=== PATIENT | male | born 1960 | race Caucasian/White ===

== ENCOUNTER 2021-01-28 14:19 | Observation (INO) ==
[2021-01-28] MEDS ORDERED: 0.9 % Sodium Chloride 1,000 ML IV ONE (14:37)
[2021-01-28] MEDS ORDERED: Ondansetron 4 MG/2 ML VIAL IVP ONE (14:37)
[2021-01-28 15:14] LABS: Basophils % 0.3 %; Eosinophils # 0.1 K/mcL (0.0-0.6); Eosinophils % 0.8 %; Hematocrit 50.4 % (37.5-50.1); Hemoglobin 15.7 g/dL (12.9-16.9); Immature Granulocytes % 0.5 % (0-4); Lymphocytes # 1.4 K/mcL (0.6-4.6); Lymphocytes % 17.6 %; Mean Corpuscular HGB Conc 31.2 g/dL (31.6-35.5); Mean Corpuscular Hemoglobin 25.1 pg (28.0-33.3); Mean Corpuscular Volume 80.6 fL (83.0-100.0); Monocytes # 0.6 K/mcL (0.0-1.3); Monocytes % 7.3 %; Neutrophils # 5.8 K/mcL (1.6-8.9); Platelet Count 319 K/mcL (140-400); Red Blood Count 6.25 M/mcL (4.19-5.50); Segmented Neutrophils % 73.5 %; White Blood Count 7.9 K/mcL (4.3-11.1)
[2021-01-28 15:17] LABS: INR 1.2; Prothrombin Time 14.2 Seconds (9.4-12.1)
[2021-01-28 15:20] LABS: Activated Partial Thrombo Time 36.4 Seconds (26.0-36.0)
[2021-01-28 15:25] LABS: Amorphous Sediment,Urine Few per hpf (None-Few); Bacteria,Urine Few per hpf (None-Few); Bilirubin,Urine Negative (Negative); Blood,Urine Negative (Negative); Clarity,Urine Clear (Clear); Color,Urine Yellow (Yellow); Glucose,Urine (UA) Normal (Normal); Ketones,Urine Negative (Negative); Leukocyte Esterase,Urine Negative (Negative); Mucus,Urine Few per lpf (None-Few); Nitrite,Urine Negative (Negative); Protein,Urine 30 mg/dL (Neg-Trace); RBC,Urine 0-3 per hpf (0-3); Specific Gravity,Urine 1.029 (1.010-1.025); Squamous Epithelial Cell,Urine Few per hpf (None-Few); Urobilinogen,Urine Normal (Normal); WBC,Urine 0-3 per hpf (0-3)
[2021-01-28 15:30] LABS: Alanine Aminotransferase 14 Units/L (7-52); Albumin 4.1 g/dL (3.5-5.7); Albumin/Globulin Ratio 1.3 (1.1-2.2); Alkaline Phosphatase 70 Units/L (34-104); Aspartate Amino Transferase 19 Units/L (13-39); BUN/Creatinine Ratio 20 (6-26); Bilirubin,Total 2.2 mg/dL (0.3-1.0); Blood Urea Nitrogen 25 mg/dL (8-23); C-Reactive Protein 6 mg/L (Less than 10); Calcium 9.3 mg/dL (8.6-10.3); Carbon Dioxide 24 mEq/L (23-29); Chloride 103 mEq/L (98-107); Creatine Kinase 226 Units/L (30-223); Globulin 3.1 g/dL (2.4-3.5); Glucose 126 mg/dL (70-105); Lipase 18 Units/L (11-82); Magnesium 1.9 mg/dL (1.6-2.6); Osmolality,Calculated 292 (280-300); Sodium 138 mEq/L (136-145); Total Protein 7.2 g/dL (6.4-8.9); Troponin I < 0.03 ng/mL (< 0.04); eGFR For African Americans > 60 (> 60); eGFR For Non-African Americans > 60 (> 60)
[2021-01-28 15:43] LABS: Thyroid Stimulating Hormone 0.204 mcIU/mL (0.340-5.600)
[2021-01-28] MEDS ORDERED: Morphine Sulfate 2 MG/ML SYRINGE IVP ONE (16:17)
[2021-01-28] MEDS ORDERED: *HR* Heparin 5,000 UNIT/ML VIAL IVP PRN ×2 (17:00)
[2021-01-28] MEDS ORDERED: *HR* Heparin 5,000 UNIT/ML VIAL IVP ONE (17:00)
[2021-01-28] MEDS ORDERED: Naloxone 0.4 MG/ML INJ IVP PRN (17:00)
[2021-01-28] MEDS ORDERED: Ondansetron 4 MG/2 ML VIAL IVP PRN (17:00)
[2021-01-28] MEDS ORDERED: Acetaminophen 325 MG TABLET PO PRN (17:00)
[2021-01-28] MEDS: *HR* OxyCODONE Immed Rel 15 MG TABLET PO PRN (17:52)
[2021-01-28 18:25] LABS: Hematocrit 48.5 % (37.5-50.1); Hemoglobin 14.7 g/dL (12.9-16.9); Mean Corpuscular HGB Conc 30.3 g/dL (31.6-35.5); Mean Corpuscular Volume 82.3 fL (83.0-100.0); Mean Platelet Volume 9.8 fL (9.4-12.4); Platelet Count 288 K/mcL (140-400); Red Blood Count 5.89 M/mcL (4.19-5.50); Red Cell Distribution Width 14.9 % (11.5-14.5); White Blood Count 7.4 K/mcL (4.3-11.1)
[2021-01-28] MEDS: Ringers Solution, Lactated 1,000 ML IVC SCH (18:25)
[2021-01-28] MEDS: *HR* Promethazine 25 MG/ML VIAL IM PRN (18:25)
[2021-01-28] MEDS: tiZANidine 4 MG TABLET PO SCH (18:26)
[2021-01-28] MEDS: Heparin 25,000UNIT/250ML 1/2NS 25,000 UNIT/250 ML IV.SOLN IVC SCH (20:02)
[2021-01-28] MEDS: Sucralfate 1 GM TABLET PO SCH (20:08)
[2021-01-28] MEDS: rOPINIRole 1 MG TABLET PO SCH (20:08)
[2021-01-28] MEDS: Gabapentin 300 MG CAPSULE PO SCH (20:08)
[2021-01-29] MEDS: *HR* OxyCODONE Immed Rel 15 MG TABLET PO PRN ×3 (00:18→18:48)
[2021-01-29] MEDS: tiZANidine 4 MG TABLET PO SCH ×4 (01:27→23:44)
[2021-01-29 02:38] LABS: Basophils % 0.4 %; Eosinophils # 0.1 K/mcL (0.0-0.6); Hematocrit 45.4 % (37.5-50.1); Hemoglobin 14.4 g/dL (12.9-16.9); Immature Granulocytes % 0.3 % (0-4); Lymphocytes % 29.4 %; Mean Corpuscular HGB Conc 31.7 g/dL (31.6-35.5); Mean Corpuscular Hemoglobin 25.8 pg (28.0-33.3); Mean Corpuscular Volume 81.4 fL (83.0-100.0); Mean Platelet Volume 10.5 fL (9.4-12.4); Monocytes # 0.7 K/mcL (0.0-1.3); Monocytes % 10.2 %; Platelet Count 283 K/mcL (140-400); Red Blood Count 5.58 M/mcL (4.19-5.50); Red Cell Distribution Width 14.8 % (11.5-14.5); Segmented Neutrophils % 57.7 %; White Blood Count 6.9 K/mcL (4.3-11.1)
[2021-01-29 02:56] LABS: Alanine Aminotransferase 11 Units/L (7-52); Albumin 3.5 g/dL (3.5-5.7); Albumin/Globulin Ratio 1.3 (1.1-2.2); Alkaline Phosphatase 59 Units/L (34-104); Aspartate Amino Transferase 19 Units/L (13-39); BUN/Creatinine Ratio 18 (6-26); Bilirubin,Total 1.9 mg/dL (0.3-1.0); Blood Urea Nitrogen 26 mg/dL (8-23); Calcium 8.5 mg/dL (8.6-10.3); Carbon Dioxide 24 mEq/L (23-29); Chloride 104 mEq/L (98-107); Globulin 2.7 g/dL (2.4-3.5); Glucose 106 mg/dL (70-105); Magnesium 1.9 mg/dL (1.6-2.6); Osmolality,Calculated 293 (280-300); Phosphorous 4.4 mg/dL (2.7-4.5); Potassium 3.8 mEq/L (3.5-5.1); Sodium 139 mEq/L (136-145); Total Protein 6.2 g/dL (6.4-8.9); eGFR For African Americans > 60 (> 60); eGFR For Non-African Americans 50 (> 60)
[2021-01-29] MEDS: amLODIPine 5 MG TABLET PO SCH (08:29)
[2021-01-29] MEDS: Sucralfate 1 GM TABLET PO SCH ×2 (08:29→21:03)
[2021-01-29] MEDS: carvediloL 6.25 MG TABLET PO SCH ×2 (08:29→16:20)
[2021-01-29] MEDS: Gabapentin 300 MG CAPSULE PO SCH ×3 (08:29→21:03)
[2021-01-29] MEDS: *HR* Promethazine 25 MG/ML VIAL IM PRN ×2 (08:35→17:00)
[2021-01-29] MEDS ORDERED: Isovue-370 500 ML BOTTLE IVP ONE ×2 (11:38)
[2021-01-29] MEDS ORDERED: 0.9 % Sodium Chloride 1,000 ML IVC ONE (13:56)
[2021-01-29] MEDS: Heparin 25,000UNIT/250ML 1/2NS 25,000 UNIT/250 ML IV.SOLN IVC SCH (14:16)
[2021-01-29] MEDS ORDERED: Ringers Solution, Lactated 1,000 ML ONE (16:56)
[2021-01-29] MEDS: Ringers Solution, Lactated 1,000 ML IVC SCH ×2 (17:00→17:06)
[2021-01-29] MEDS: rOPINIRole 1 MG TABLET PO SCH (21:03)
[2021-01-30] MEDS: *HR* OxyCODONE Immed Rel 15 MG TABLET PO PRN ×3 (00:35→13:37)
[2021-01-30 02:30] LABS: Hematocrit 45.5 % (37.5-50.1); Hemoglobin 13.7 g/dL (12.9-16.9); Mean Corpuscular HGB Conc 30.1 g/dL (31.6-35.5); Mean Corpuscular Hemoglobin 25.4 pg (28.0-33.3); Mean Corpuscular Volume 84.3 fL (83.0-100.0); Mean Platelet Volume 10.4 fL (9.4-12.4); Platelet Count 197 K/mcL (140-400); Red Cell Distribution Width 14.7 % (11.5-14.5); White Blood Count 5.2 K/mcL (4.3-11.1)
[2021-01-30 02:46] LABS: BUN/Creatinine Ratio 17 (6-26); Blood Urea Nitrogen 21 mg/dL (8-23); Calcium 8.4 mg/dL (8.6-10.3); Carbon Dioxide 23 mEq/L (23-29); Chloride 106 mEq/L (98-107); Glucose 107 mg/dL (70-105); Osmolality,Calculated 287 (280-300); Potassium 3.8 mEq/L (3.5-5.1); Sodium 137 mEq/L (136-145); eGFR For African Americans > 60 (> 60); eGFR For Non-African Americans > 60 (> 60)
[2021-01-30] MEDS: Gabapentin 300 MG CAPSULE PO SCH ×2 (08:55→17:01)
[2021-01-30] MEDS: carvediloL 6.25 MG TABLET PO SCH (08:56)
[2021-01-30] MEDS: amLODIPine 5 MG TABLET PO SCH (08:57)
[2021-01-30] MEDS: Sucralfate 1 GM TABLET PO SCH (08:58)
[2021-01-30] MEDS: *HR* Promethazine 25 MG/ML VIAL IM PRN (08:59)
[2021-01-30] MEDS: tiZANidine 4 MG TABLET PO SCH ×2 (08:59→17:01)
[2021-01-30] MEDS: Heparin 25,000UNIT/250ML 1/2NS 25,000 UNIT/250 ML IV.SOLN IVC SCH ×2 (10:09→16:59)
[2021-01-30] MEDS ORDERED: Perflutren Lipid Microsphere 1.3 ML in 0.9 % Sodium Chloride 8.7 ML IVP PRN ×2 (10:22→14:07)
[2021-01-30 14:50] VITALS: BP 128/88
[2021-01-30] MEDS ORDERED: Apixaban 5 MG TABLET PO SCH (16:56)
[2021-01-30] MEDS ORDERED: carvediloL 6.25 MG TABLET PO SCH (17:00)
[2021-01-31] MEDS ORDERED: amLODIPine 5 MG TABLET PO SCH (09:00)
== END 2021-01-30 18:34 | disposition home or self-care (01) ==
LOC: 3BNU 14:19 → EMEROOARM 14:19 → SUATTDRO 17:14 → 3BNU 18:05
PROVIDERS: ADMIT Internal Medicine; ATTEND Internal Medicine